=== PATIENT | male | born 1960 | race Caucasian/White ===

== ENCOUNTER 2021-02-26 20:36 | Emergency (ER) | payer MEDICARE ==
[2021-02-26 21:03] LABS: BASOPHIL 0.7 % (0-2); EOSINOPHIL 1.4 % (0-5); HCT 47.4 % (42.0-52.0); HGB 16.4 g/dl (13.2-18.0); LYMPHOCYTE 51.5 % (15-48); MCH 32.9 pg (25.0-31.0); MCHC 34.6 g/dL (32.0-36.0); MCV 95.2 fL (78.0-100.0); MONOCYTE 6.4 % (0-12); NEUTROPHIL 39.8 % (41-80); NRBC 0; PLT 236 K/uL (150-400); RBC 4.98 M/uL (4.70-6.00); RDW 13.4 % (11.5-14.0); WBC 9.6 K/uL (4.0-10.5)
[2021-02-26 21:06] LABS: INR 1.02 (0.9-1.2); PROTHROMBIN TIME 12.8 SECONDS (11.8-13.4); PTT 28.2 SECONDS (24.4-34.7)
[2021-02-26 21:26] LABS: ALBUMIN 3.8 g/dL (3.4-5.0); BILIRUBIN - TOTAL 0.4 mg/dL (0.2-1.0); BUN/CREAT RATIO (CALC) 13.5 RATIO; C-REACTIVE PROTEIN < 0.20 mg/dL (<=0.90); CREATININE 0.96 mg/dL (0.67-1.17); GLOBULIN (CALCULATION) 3.4 g/dL; LIPASE 127 U/L (73-393); POTASSIUM 3.8 mmol/L (3.5-5.1); TOTAL PROTEIN 7.2 g/dL (6.4-8.2)
[2021-02-27] MEDS ORDERED: CYCLOBENZAPRINE10 MG PO (00:06)
[2021-02-27] MEDS ORDERED: MEDROL 4MG DOSEP4 MG PO (00:06)
[2021-02-27] MEDS ORDERED: PEPCID AC20 MG PO (00:06)
== END 2021-02-27 00:22 | disposition home or self-care (01) ==
LOC: FER 20:36
PROVIDERS: Emergency Medicine Emergency Medical Services
DX: M25.512 Pain in left shoulder (principal); E78.5 Hyperlipidemia, unspecified; F17.210 Nicotine dependence, cigarettes, uncomplicated; Z79.899 Other long term (current) drug therapy
CPT/HCPCS: 36415; 71045; 80053; 83690; 84484; 85025; 85379; 85610; 85730; 86140; 93005